=== PATIENT | male | born 2000 | race African-American/Black ===

== ENCOUNTER 2022-04-25 13:42 | Emergency (ER) | payer OTHER ==
[2022-04-25 13:49] VITALS: RESP 18; BMI 30.6
[2022-04-25] MEDS ORDERED: MAG HYDROX/AL HYDROX/SIMETH 30 ML UNIT-DOSE CUP PO ONE (14:43)
[2022-04-25] MEDS ORDERED: FAMOTIDINE 20 MG/50 ML IVPB 20 MG/50 ML MG IVPB ONE ×2 (14:43→14:57)
[2022-04-25] MEDS ORDERED: MAG HYDROX/AL HYDROX/SIMETH 30 ML UNIT-DOSE CUP ONE (14:57)
[2022-04-25 16:50] LABS: BASO % 0.3 % (0-2.0); EOS % 0.5 % (0-4.5); HEMATOCRIT 40.9 % (35.4-49); HEMOGLOBIN 13.6 GM/dL (11.7-16.9); LYMPH % 34.5 % (8-40); MCH 27.1 pg (25.7-33.7); MCHC 33.3 g/dl (32.0-35.9); MEAN CELL VOLUME 81.3 fl (80-96); MEAN PLT VOLUME 9.2 fl (7.5-11.1); MONO % 6.6 % (3.8-10.2); NEUT % 58.1 % (42.8-82.8); PLATELET COUNT 251 10^3/uL (134-434); RBC 5.03 M/mm3 (4.00-5.60); RDW 14.6 % (11.9-15.9); WHITE BLOOD COUNT 5.6 K/mm3 (4.0-10.0)
[2022-04-25 17:05] LABS: CHLORIDE 105 mmol/L (98-107); SODIUM 139 mmol/L (136-145)
[2022-04-25 17:07] LABS: ALBUMIN 4.2 g/dl (3.4-5.0); ANION GAP 6 MMOL/L (8-16); BLOOD UREA NITROGEN 8.7 mg/dL (7-18); CALCIUM 9.6 mg/dL (8.5-10.1); CO2 28 mmol/L (21-32); GLUCOSE,RANDOM 85 mg/dL (74-106)
[2022-04-25 17:10] LABS: SGPT/ALT 27 U/L (13-61)
[2022-04-25 17:11] LABS: CREATININE 1.1 mg/dL (0.55-1.3); SGOT/AST 21 U/L (15-37)
[2022-04-25 17:12] VITALS: BP 103/70; PULSE 54; TEMP 98.4
[2022-04-25 17:12] LABS: BILIRUBIN,TOTAL 0.9 mg/dL (0.2-1); TOT PROT 8.3 g/dl (6.4-8.2)
[2022-04-25 17:13] LABS: ALK PHOS 83 U/L (45-117)
== END 2022-04-25 19:56 | disposition home or self-care (01) ==
LOC: JER 13:42
PROC: 3E033GC Introduction of Other Therapeutic Substance into Peripheral Vein, Percutaneous Approach (ICD-10-PCS; principal; 2022-04-25)
DX: R07.9 Chest pain, unspecified (principal); R13.10 Dysphagia, unspecified; R06.02 Shortness of breath
CPT/HCPCS: 36415; 71046-TC-FY; 80053; 82550; 82553; 84484; 85025; 93005; 93010; 99285-25

== ENCOUNTER 2022-04-27 12:09 | Emergency (ER) | payer OTHER ==
[2022-04-27 12:13] VITALS: BP 138/65; PULSE 59; RESP 18; TEMP 99.1; BMI 30.6
[2022-04-27 14:18] LABS: BASO % 0.5 % (0-2.0); EOS % 0.4 % (0-4.5); HEMATOCRIT 40.5 % (35.4-49); HEMOGLOBIN 13.2 GM/dL (11.7-16.9); LYMPH % 34.3 % (8-40); MCH 26.5 pg (25.7-33.7); MCHC 32.6 g/dl (32.0-35.9); MEAN CELL VOLUME 81.5 fl (80-96); MEAN PLT VOLUME 8.8 fl (7.5-11.1); MONO % 7.2 % (3.8-10.2); NEUT % 57.6 % (42.8-82.8); PLATELET COUNT 252 10^3/uL (134-434); RBC 4.98 M/mm3 (4.00-5.60); RDW 14.8 % (11.9-15.9); WHITE BLOOD COUNT 5.6 K/mm3 (4.0-10.0)
[2022-04-27 14:35] LABS: CALCIUM 9.6 mg/dL (8.5-10.1)
[2022-04-27 14:36] LABS: BLOOD UREA NITROGEN 7.9 mg/dL (7-18)
[2022-04-27 14:41] LABS: BILIRUBIN,TOTAL 0.8 mg/dL (0.2-1)
== END 2022-04-27 18:54 | disposition home or self-care (01) ==
LOC: JER 12:09 → JERFT 12:09 → JER 18:54
DX: R06.00 Dyspnea, unspecified (principal)
CPT/HCPCS: 0241U-QW; 36415; 71275-TC; 80053; 85025; 99284-25